=== PATIENT | male | born 1970 | race Caucasian/White ===

== ENCOUNTER → 2021-04-25 | Emergency (ER) | payer SELFPAY ==
[~2021-04-25] VITALS: Ht 177.8 cm; Wt 75.3 kg
--- NOTE | 2021-04-25 15:34 | NUR ---
PT [facility] 61 FROM [facility] FOR POSSIBLE HEROIN OD. PT IS AAOX2, NOT IN RESPIRATORY DISTRESS, HOOKED TO PUMP MACHINE OPERATOR, KEPT RESTED AND COMFORTABLE. WILL CONTINUE MONITOR.
--- NOTE | 2021-04-25 16:00 | NUR ---
THE PATIENT IS ALERT AND ORIENTED X4. DENIES PAIN. IN ROOM AIR AND DENIES SOB. RESPIRATION REGULR AND UNLABORED. DENIES SI/HI. DENIES HAVING ANY TYPE OF HALLUCINATIONS.
--- NOTE | 2021-04-25 16:12 | NUR ---
Patient discharged to home in stable condition. Written and verbal after care instructions given. Patient verbalizes understanding of instruction.
[2021-04-25 16:14] VITALS: BP 112/70
--- NOTE | 2021-04-25 16:14 | NUR ---
UNABLE TO DEPART THE PATIENT FROM [facility]
== END | disposition home or self-care (01) ==
LOC: ER 16:20
DX: S01.512A Laceration without foreign body of oral cavity, initial encounter (principal); T50.901A Poisoning by unspecified drugs, medicaments and biological substances, accidental (unintentional), initial encounter; Z59.00 Homelessness unspecified; Y92.521 Bus station as the place of occurrence of the external cause; X58.XXXA Exposure to other specified factors, initial encounter; Y93.89 Activity, other specified; Y92.89 Other specified places as the place of occurrence of the external cause; Y99.8 Other external cause status